=== PATIENT | male | born 1930 ===

== ENCOUNTER 2019-08-22 10:41 | Inpatient (IN) | payer OTHER ==
[~2019-08-22] VITALS: Ht 193 cm; Wt 59.0 kg
--- NOTE | 2019-08-22 11:02 | NUR ---
PACIENTE ALERTA,ACTIVO Y ORIENTADO,ACOMPANADO DE ESPOSA.ESTA REFIERE EL SE LADI DE LA CAMA HACE MARYCHUY SEMANA Y DESDE ENTONCES NO PUEDE CAMINAR JORJE.
--- NOTE | 2019-08-22 12:57 | NUR ---
SE RECIBE PACIENTE ALERTA Y ORIENTADO EN [place] ESFERAS, SE WILMER MUESTRAS DE WALESKA EN ANTEBRAZO MICHELLE BAJO MEDIDAS ASEPTICAS, TOI ORDEN MEDICA. PACIENTE ORIENTADO SOBRE PROCEDIMIENTO VERBALIZA ENTENDER. SE COLOCA PACIENTE EN AREA DE LYN[place].
--- NOTE | 2019-08-22 13:50 | NUR ---
COLACODO STUBBS UTILIZANDO MEDIDAS ASEPTICAS TOI PROTOCOLO ESTABLECIDO.
--- NOTE | 2019-08-22 17:26 | NUR ---
ES NECESARIO REORIENTAR A ESPOSA DE PACIENTE CONSTANTEMENTE, PORQUE INDICA QUE NO ESTA DISPUESTA A ESPERAR POR EVALUACION DE MEDICO CONSULTOR. EN REPETIDAS OCACIONES SE ACERCA A EL PERSONAL DE [place] PIDIENDO QUE SE REMUEVA STUBBS E INTRAVENOSO PARA SALIR DE EL HOSPITAL. REORIENTADA EN INUMERABLE OCACIONES QUE DEBIDO A LA CONDICION DE PACIENTE ESO SERIA CONTRAPRODUCENTE.ESPOSA EN FORMA REPETITIVA INSISTE EN QUE NO ESTA DISPUESTA A PERMANECER EN EL HOSPITAL. PACIENTE ES MANTENIDO CON CABEZERA A 45 GRADOS,BARANDAS ELEVADAS,TIMBRE ACCESIBLE Y EN OBSERVACION MP POR CAMBIOS EN CONDICION.
--- NOTE | 2019-08-22 18:00 | NUR ---
18:00 PTE Y FAMILIAR AMBOS INQUIETOS Y MUCHAS DUDAS. SE ORIENTAN EN MULTIPLES OCASIONES SOBRE EL TX Y PROCEDIMIENTOS (PTE SE ENCUENTRA EN ESPERA DE INTERNISTA PARA EVALUACION), FAMILIAR DE PTE NO ES CAPAZ DE ENTENDER Y CONTINUA CON MULTIPLES DUDAS. PTE INTENTA QUITARSE EL STUBBS EN MULTIPLES OCASIONES POR LO QUE SE NOTIFICA A DR MITCHELL QUIEN ORDENA EL TX. SE ADMINISTRA MEDICAMENTO SEGUNN ORDEN MEDICA Y SIGUIENDO MEDIDAS ASEPTICAS Y SE COLOCAN RESTRICCIONES EN EXTREMIDADES SUPERIORES, PTE TOLERA LAS MISMAS. SE MANTIENE BAJO OBSERVACION. FAMILIAR DE PTE CONTINUA INTERRUMPIENDO TX DE OTROS PTES E INTERRUMPIENDO AL PERSONAL DE ENFERMERIA A PESAR DE SER ORIENTADA EN MULTIPLES OCASIONES POR PERSONAL DE ENFERMERIA, , MS MATIAS Y PERSONAL DE SUPERVISION DE [place]. 18:30PM FAMILIAR DE PTE PARTE DE ER. 19:00PM MR SALDAÑA PERSONAL DE TRABAJO SOCIAL PASA A EVALUAR PTE.
--- NOTE | 2019-08-22 18:13 | NUR ---
ES VISITADO POR LA TRABAJADORA LA ALAINA. ABIGAIL MURIENTE, LA CUAL NO LOGRA OBTENER INFORMACION DE LA ESPOSA YA QUE TRENA LO UNICO QUE HACE REPETIDA VECES ES INDICAR, QUE SE LE RETIRE EL STUBBS Y SE LE QUITE LOS FLUIDOS INTRAVENOSOS, SE LE ORIENTA TANTO AL PERSONAL DE ENFERMERIA, MEDICOS, ELENA PERSONAL ADMINISTRATIVOS REFIERASE A SUPERVIOSRAS DEL [place] 05/01 Y 01/07, QUE DEBE DE ESPERAR CONSULTA CON INTERNISTA, YA QUE EL PACIENTE REQUIERE ATENCION MEDICA. 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 EN LO QUE SE CONCLUYE LA SITUACION CON EL PACIENTE.
--- NOTE | 2019-08-22 18:20 | NUR ---
1800 LA ESPOSA CONTINUA FRECUENTANDO LA ESTACION DE ENFERMERIA REFIRIENDO QUE SE TIENE QUE LLEVAR A JAIN ESPOSO YA QUE TRENA NO YASHIRA DE NOCHE. POR REPETIDAS OCASIONES SE ORIENTA AL PARTICULAR. . BOBBYE LOGRA OBTENER ALGUNA INFORMACION, Y LLAMA A "INTERVENCION EN EL HOGAR" Y DIALOGA CON BROCK DAMON CON DURGA DE REFERIDO #[id number], DEJANDO SABER QUE TIENEN 24 HORAS PARA EVALUARLO Y KODY QUE PROCEDE. [address] DWYER RN DIALOGA CON EL SR. PIOTR KAMINSKI TRABAJADOR SOCIAL BALCONY WORKER, PARA DARLE CONTINUIDAD Y SEGUIMIENTO A LA GESTION DE LA ALAINABONNIEIENTE, ME REFIERE QUE ESTARA PASANDO POR EL HOSPITAL.
--- NOTE | 2019-08-22 20:17 | NUR ---
1900 LLEGA A LA LINDA DE ER EL SR. MCKINNONPIOTR KAMINSKI, PARA SEGUIMIENTO DEL ADDIE, AL MOMENTO PACIENTE SOLO, RESTRINGIDO EN EXTREMIDADAES SUPERIORES, DESPIERTO Y DESORIENTADO. FAVOR KODY NOTA DEL RE-ESTIMADO DE TRABAJO SOCIAL PARA SEGUIMIENTO EN AM. SE MANTIENE DANDOLE RONDAS, Y PENDIENTE EVALUACION CON MEDICINA INTERNA CON EL DR. MARV MELO.
[2019-08-27] MEDS ORDERED: TAMSULOSIN HCL0.4 MG PO (11:40)
== END 2019-08-29 18:36 | disposition home or self-care (01) | DRG 683 ==
LOC: ER 10:41 → MEDJ 08-23 01:18
PROVIDERS: ADMIT Internal Medicine
PROC: BW28ZZZ Computerized Tomography (CT Scan) of Head (ICD-10-PCS; 2019-08-23)
PROC: 0T9B70Z Drainage of Bladder with Drainage Device, Via Natural or Artificial Opening (ICD-10-PCS; 2019-08-23)
PROC: 4A12X4Z Monitoring of Cardiac Electrical Activity, External Approach (ICD-10-PCS; 2019-08-23)
PROC: B030ZZZ Magnetic Resonance Imaging (MRI) of Brain (ICD-10-PCS; principal; 2019-08-24)
DX: N17.8 Other acute kidney failure (principal); I67.89 Other cerebrovascular disease; N13.1 Hydronephrosis with ureteral stricture, not elsewhere classified; E87.6 Hypokalemia; E86.0 Dehydration; E87.8 Other disorders of electrolyte and fluid balance, not elsewhere classified; N13.5 Crossing vessel and stricture of ureter without hydronephrosis; I12.9 Hypertensive chronic kidney disease with stage 1 through stage 4 chronic kidney disease, or unspecified chronic kidney disease; N18.2 Chronic kidney disease, stage 2 (mild); R31.0 Gross hematuria
CPT/HCPCS: 70552